=== PATIENT | female | born 1955 | race African-American/Black ===

== ENCOUNTER 2016-12-21 06:35 | Emergency (ER) | payer OTHER ==
[2016-12-21 08:07] VITALS: BP 177/93
== END 2016-12-21 09:30 | disposition home or self-care (01) ==
LOC: ED 06:35
DX: S09.8XXA Other specified injuries of head, initial encounter (principal); J20.9 Acute bronchitis, unspecified; E11.9 Type 2 diabetes mellitus without complications; I11.0 Hypertensive heart disease with heart failure; I50.9 Heart failure, unspecified; Z88.0 Allergy status to penicillin; Z79.899 Other long term (current) drug therapy; Z79.84 Long term (current) use of oral hypoglycemic drugs; W22.8XXA Striking against or struck by other objects, initial encounter; Y93.89 Activity, other specified; Y99.8 Other external cause status; Y92.89 Other specified places as the place of occurrence of the external cause

== ENCOUNTER 2018-10-15 20:35 | Observation (INO) | payer OTHER ==
[~2018-10-15] VITALS: Ht 172.7 cm; Wt 91.2 kg
[2018-10-15 20:38] VITALS: Ht 172.7 cm; Wt 91.2 kg
[2018-10-15 21:21] LABS: BASOPHIL % 0.3 % (0-2); PLATELET COUNT 190 x10^3mcL (130-400); RED CELL DISTRIBUTION WIDTH 12.6 % (11.5-14.5)
[2018-10-15 21:25] LABS: ALBUMIN 3.8 g/dL (3.4-5.0); ALKALINE PHOSPHATASE 115 U/L (46-116); ALT/SGPT 21 U/L (14-59); AST/SGOT 6 U/L (15-37); BILIRUBIN TOTAL 0.7 mg/dL (0.20-1.00); CALCIUM 9.4 mg/dL (8.5-10.1); CARBON DIOXIDE 34.2 mmol/L (21-32); CHLORIDE SERUM 101 mmol/L (98-107); CREATININE SERUM 0.9 mg/dL (0.6-1.0); GFR1 > 60 mL/min; GLUCOSE SERUM 158 mg/dL (74-106); LIPASE 1333 IU/L (73-393); POTASSIUM SERUM 3.7 mmol/L (3.5-5.1); SODIUM SERUM 141 mmol/L (136-145); TOTAL PROTEIN, SERUM 7.7 g/dL (6.4-8.2)
[2018-10-15] MEDS ORDERED: METFORMIN500 M1 PO (23:14)
[2018-10-15] MEDS ORDERED: BENAZEPRIL HYDR40 M1 PO (23:15)
[2018-10-15] MEDS ORDERED: GLYBURIDE5 MG PO (23:16)
[2018-10-15] MEDS ORDERED: ONGLYZA5 M1 PO (23:17)
[2018-10-15] MEDS ORDERED: LASIX20 MG PO (23:17)
[2018-10-15] MEDS ORDERED: NORCO1 TA2 PO (23:18)
[2018-10-16 01:42] VITALS: BP 172/85
[2018-10-16 05:50] VITALS: BP 161/96
[2018-10-16 06:15] LABS: BASOPHIL % 0.4 % (0-2); PLATELET COUNT 183 x10^3mcL (130-400); RED CELL DISTRIBUTION WIDTH 12.6 % (11.5-14.5)
[2018-10-16 06:31] LABS: ALBUMIN 3.7 g/dL (3.4-5.0); ALKALINE PHOSPHATASE 118 U/L (46-116); ALT/SGPT 23 U/L (14-59); AST/SGOT 14 U/L (15-37); BILIRUBIN TOTAL 0.71 mg/dL (0.20-1.00); CALCIUM 9.2 mg/dL (8.5-10.1); CARBON DIOXIDE 29.9 mmol/L (21-32); CHLORIDE SERUM 105 mmol/L (98-107); CREATININE SERUM 0.7 mg/dL (0.6-1.0); GFR1 > 60 mL/min; GLUCOSE SERUM 162 mg/dL (74-106); MAGNESIUM 1.5 mg/dL (1.8-2.4); POTASSIUM SERUM 3.5 mmol/L (3.5-5.1); SODIUM SERUM 142 mmol/L (136-145); TOTAL PROTEIN, SERUM 7.5 g/dL (6.4-8.2)
[2018-10-16 09:07] VITALS: BP 177/84
[2018-10-16 10:27] VITALS: BP 177/84
== END 2018-10-16 11:45 | disposition home or self-care (01) | DRG 880 ==
LOC: ED 20:35 → DU 23:03
PROVIDERS: Emergency Medicine; ADMIT Internal Medicine Pulmonary Disease
DX: F43.0 Acute stress reaction (principal); R07.9 Chest pain, unspecified
CPT/HCPCS: G0378; J7030; J7120; Q0092

== ENCOUNTER 2019-04-01 06:57 | Emergency (ER) | payer OTHER ==
[~2019-04-01] VITALS: Ht 172.7 cm; Wt 91.6 kg
[~2019-04-01 06:57] MED LIST: BENAZEPRIL HYDR40 M1 PO; GLYBURIDE5 MG PO; LASIX20 MG PO; METFORMIN500 M1 PO; NORCO1 TA2 PO; ONGLYZA5 M1 PO
[2019-04-01 07:04] VITALS: Ht 172.7 cm; Wt 91.6 kg
[2019-04-01 08:03] LABS: BASOPHIL % 0.2 % (0-2); PLATELET COUNT 196 x10^3mcL (130-400); RED CELL DISTRIBUTION WIDTH 12.4 % (11.5-14.5)
[2019-04-01 08:40] LABS: CALCIUM 9.2 mg/dL (8.5-10.1); CARBON DIOXIDE 26.9 mmol/L (21-32); CHLORIDE SERUM 101 mmol/L (98-107); CREATININE SERUM 0.9 mg/dL (0.6-1.0); GFR1 > 60 mL/min; GLUCOSE SERUM 260 mg/dL (74-106); SODIUM SERUM 137 mmol/L (136-145)
[2019-04-01 08:41] LABS: T3 TOTAL 1.37 ng/mL
[2019-04-01 08:44] LABS: ALKALINE PHOSPHATASE 105 U/L (46-116); ALT/SGPT 17 U/L (14-59); AST/SGOT 11 U/L (15-37); BILIRUBIN TOTAL 1.34 mg/dL (0.20-1.00); CHOLESTEROL 147 mg/dL (<200); CHOLESTEROL/HDL RATIO 2.6; HDL CHOLESTEROL 57 mg/dL (40-60); LIPASE 95 IU/L (73-393); TOTAL PROTEIN, SERUM 7.7 g/dL (6.4-8.2); TRIGLYCERIDES 79 mg/dL (<150)
[2019-04-01 08:50] LABS: FREE T4 1.43 ng/dL (0.76-1.46); FREE THYROXINE INDEX 4.2 ug/dL (1.4-4.5)
[2019-04-01 09:57] LABS: UA SPECIFIC GRAVITY 1.015 (1.005-1.035); microscopic required? YES; urine erythrocyte NEGATIVE (NEGATIVE)
[2019-04-01 11:24] VITALS: BP 168/98
== END 2019-04-01 11:24 | disposition home or self-care (01) ==
LOC: ED 06:57
PROVIDERS: Specialist
DX: H81.10 Benign paroxysmal vertigo, unspecified ear (principal); I10 Essential (primary) hypertension; E11.40 Type 2 diabetes mellitus with diabetic neuropathy, unspecified; F41.9 Anxiety disorder, unspecified; Z88.0 Allergy status to penicillin
CPT/HCPCS: 82962; 83880; 84439; J2405; J7030; J8597; Q0092

== ENCOUNTER 2020-05-03 21:43 | Emergency (ER) | payer OTHER ==
[~2020-05-03] VITALS: Ht 172.7 cm; Wt 88.5 kg
[2020-05-03 21:56] VITALS: BP 139/98; Ht 172.7 cm; Wt 88.5 kg
== END 2020-05-04 02:50 | disposition home or self-care (01) ==
LOC: ED 21:43
DX: S09.90XA Unspecified injury of head, initial encounter (principal); M54.2 Cervicalgia; I10 Essential (primary) hypertension; E11.9 Type 2 diabetes mellitus without complications; Z88.0 Allergy status to penicillin; W22.8XXA Striking against or struck by other objects, initial encounter; Y93.89 Activity, other specified; Y92.89 Other specified places as the place of occurrence of the external cause; Y99.8 Other external cause status